=== PATIENT | female | born 1945 | race Caucasian/White ===

== ENCOUNTER → 2017-06-21 | Outpatient (CLI) | payer MEDICARE, MEDICAID ==
[~2017-06-21] MED LIST: ALEN70TA2 PO; AMOX-559 PO; ASCO-183 PO; ASCO-599 PO; ASCO60LO11 PO; ASP81 PO; ASPI-757 PO; ASPI-879 PO; ASPI81TA94 PO; B CM1TAB2 PO; BLOO-884 MC; CALC-649 PO; CALC-682 PO; CHOL200022 PO; CHOL400C10 PO; CYAN50TA3 PO; CYC10 PO; DAR100 PO; DESL5TAB PO; DICL-195 PO; DICL1TAB52 PO; DIPH-1 PO; FISH OIL1 CAP PO; FISH1CAP15 PO; FLU150 PO; FLU45SYR17 IM; HCTZ25 PO; HYDR-2966 PO; HYDR-3072 PO; IBU600 PO; LECI400C PO; LEVO75TA73 PO; LIS10 PO; LISI-362 PO; LOR5/325 PO; LORA-629 PO; MISO200T62 PO; MON10 PO; MONT10TA PO; PAN40 PO; PANT40TA65 PO; PNEU0.5D3 IM; POLY10DR20 OP; POT20; POTA20TA85 PO; POTA20TA94 PO; PREDNISONE PO; VITA-175 PO; VITA-197 PO; VITA15CR2 TP; [UNRECOGNIZED DRUG - CODE] DT; [UNRECOGNIZED DRUG - CODE] MC; [UNRECOGNIZED DRUG - CODE] PO; [UNRECOGNIZED DRUG - CODE] PO; [UNRECOGNIZED DRUG - CODE] PO; [UNRECOGNIZED DRUG - CODE] PO
== END ==
LOC: LAB 14:27
PROVIDERS: ATTEND Family Medicine
DX: R30.0 Dysuria (principal)
CPT/HCPCS: 81001

== ENCOUNTER → 2017-11-14 | Outpatient (CLI) | payer MEDICARE, MEDICAID ==
[2017-11-14 11:44] LABS: LDL CHOLESTEROL 108 mg/dl
== END ==
LOC: LAB 10:44
PROVIDERS: ATTEND Internal Medicine
DX: E55.9 Vitamin D deficiency, unspecified (principal); E05.20 Thyrotoxicosis with toxic multinodular goiter without thyrotoxic crisis or storm; I10 Essential (primary) hypertension; E11.9 Type 2 diabetes mellitus without complications
CPT/HCPCS: 36415; 82040; 82247; 82306; 82310; 82374; 82435; 82465; 82565; 82947; 83036; 83718; 84075; 84132; 84155; 84295; 84443; 84450; 84460; 84478; 84520

== ENCOUNTER → 2017-11-15 | Outpatient (CLI) | payer MEDICARE, MEDICAID | LOC: LAB 11:48 | PROVIDERS: ATTEND Internal Medicine | DX: R30.0 Dysuria (principal) | CPT/HCPCS: 81001; 87077; 87088; 87186 ==

== ENCOUNTER → 2017-12-05 | Outpatient (CLI) | payer MEDICARE, MEDICAID ==
[~2017-12-05] MED LIST changes: +AMOX500T10 PO; +BLOO1STR16 MC; +ESTR42.5 PV; +LANC-1295 MC
== END ==
LOC: LAB 10:57
PROVIDERS: ATTEND Internal Medicine
DX: R30.0 Dysuria (principal)
CPT/HCPCS: 81001

== ENCOUNTER → 2018-02-21 | Outpatient (CLI) | payer MEDICARE, MEDICAID ==
[~2018-02-21] MED LIST changes: +CHOL200018 PO; -CHOL200022 PO
[2018-02-21 08:35] LABS: LDL CHOLESTEROL 137 mg/dl
== END ==
LOC: LAB 07:58
PROVIDERS: ATTEND Internal Medicine
DX: E11.40 Type 2 diabetes mellitus with diabetic neuropathy, unspecified (principal); R51 Headache; E03.9 Hypothyroidism, unspecified; E78.5 Hyperlipidemia, unspecified
CPT/HCPCS: 36415; 82040; 82247; 82310; 82374; 82435; 82465; 82565; 82947; 83036; 83718; 84075; 84132; 84155; 84295; 84443; 84450; 84460; 84478; 84520

== ENCOUNTER → 2018-02-27 | Outpatient (CLI) | payer MEDICARE, MEDICAID ==
--- NOTE | 2018-02-27 16:34 | RADIOLOGY IMAGING REPORT ---
FACILITY: [facility] PATIENT NAME: Rosemarie Collins : 1945 MR: [id number] V: [id number] EXAM DATE: ORDERING PHYSICIAN: MARLIN RAMAN TECHNOLOGIST: Location: [facility] [place] Patient: Rosemarie Collins : 1945 Visit/Account:[id number] Date of Sevice: 02/27/2018 Clinical history: Postmenopausal, osteoporosis screening. Comparison: 08/10/2014. LUMBAR SPINE: The bone mineral density (BMD) measured from L1-L3 correlates with a Z-score of 2.2 and a T-score of 0.7 which is normal as defined by the World Health Organization. The corresponding risk of fracture in the lumbar spine is not increased compared with a young adult reference population. This value conde s increase by 3.4 % since the prior study. More than 5% change is considered significant. HIP: Bone mineral density (BMD) measured in the left Total Hip region correlates with a Z-score of -0.6 an d a T-score of -2.0 which is osteopenia as defined by the World Health Organization. The correspondi ng risk of fracture in the hip is increased 4 times compared with a young adult reference population. This value has increased by 6.7 % since the prior study. More than 5% change is considered signifi cant. Bone mineral density (BMD) measured in the left femoral neck correlates with a Z-score of 0.2 and a T -score of -1.4 which is osteopenia as defined by the World Health Organization. The corresponding ri sk of fracture in the hip is increased 2-3 times compared with a young adult reference population. T his value has increased by 9.8 % since the prior study. More than 5% change is considered significan t. Bone mineral density (BMD) measured in the left Femoral Neck region measures 0.849 g/cm2. IMPRESSION: 1. Lumbar spine: Osteopenia. There has been no significant change in the bone mineral density sinc e the previous exam. 2. Left total hip: Osteopenia. There has been significant increase in the bone mineral density since the previous exam. 3. Left Femoral Neck: Osteopenia. There has been significant increase in the bone mineral density si nce the previous exam 4. Left femoral neck bone mineral density: 0.849 g/cm2. The next DEXA scan of this patient should include the following sites: Lumbar spine and left hip. FRAX(R) WHO Fracture Risk Assessment Tool link: http://www.shef.ac.uk/FRAX/tool.jsp?locationValue=9 PLEASE NOTE: 1) The World Health Organization defines low BMD as follows: T-score Normal > -1 Osteopenia < -1 and > -2.5 Osteoporosis < -2.5 without fractures Established osteoporosis < -2.5 with fractures 2) In general, you may wish to consider: Diagnosis Treatment Follow-up DEXA Normal BMD Prevention 2-3 years Osteopenia Prevention/therapy 1-2 years Osteoporosis Therapy Yearly 3) Fracture risk estimated from the T-score is more accurate for vertebral fractures (often spontane ous) than for hip fractures Report Dictated By: Lorie Vidales MD at 02/27/2018 4:26 PM Report E-Signed By: Lorie Vidales MD at 02/27/2018 4:30 PM WSN:[id number]
--- NOTE | 2018-03-01 08:24 | RADIOLOGY IMAGING REPORT ---
[place] [facility] [place]: TARIK SHABAZZ : [id number] MR: [id number] V: [id number] EXAM DATE: ORDERING PHYSICIAN: MARLIN RAMAN TECHNOLOGIST: Beverly Rivera PROCEDURE:BILATERAL DIGITAL SCREENING MAMMOGRAM WITH CAD ASSISTED INTERPRETATION & 3D TOMOSYNTHESIS COMPARISON:Prior mammograms dated 05/06/14, 06/28/12, 06/26/11 INDICATIONS:SCREENING FINDINGS: A small amount of fibroglandular tissue is seen throughout the breasts. The parenchymal pattern has remained stable allowing for difference in mammographic technique & patient positioning. There is no evidence of malignant appearing mass, malignant appearing calcification or other secondary sign of malignancy in either breast. DIAGNOSTIC CATEGORY 1--NEGATIVE. RECOMMENDATIONS: ROUTINE MAMMOGRAM AND CLINICAL EVALUATION. IMPRESSION: BIRADS 1: Negative. No significant abnormality is seen. Dictated by: Tresa Butt M.D. on 02/27/2018 at 16:36 Transcribed by: JASMINE on 03/01/2018 at 8:10 Approved by: Tresa Butt M.D. on 03/01/2018 at 8:22 [facility]
== END ==
LOC: MAMO 00:38
PROVIDERS: ATTEND Internal Medicine
DX: Z13.820 Encounter for screening for osteoporosis (principal); Z12.31 Encounter for screening mammogram for malignant neoplasm of breast; M85.88 Other specified disorders of bone density and structure, other site
CPT/HCPCS: 77063; 77067; 77080

== ENCOUNTER → 2018-05-22 | Outpatient (CLI) | payer MEDICARE, MEDICAID ==
[~2018-05-22] MED LIST changes: -ALEN70TA2 PO; +ALEN70TA46 PO
[2018-05-22 11:22] LABS: LDL CHOLESTEROL 142 mg/dl
== END ==
LOC: LAB 09:53
PROVIDERS: ATTEND Internal Medicine
DX: E11.40 Type 2 diabetes mellitus with diabetic neuropathy, unspecified (principal); E78.00 Pure hypercholesterolemia, unspecified; E05.90 Thyrotoxicosis, unspecified without thyrotoxic crisis or storm
CPT/HCPCS: 36415; 82040; 82247; 82310; 82374; 82435; 82465; 82565; 82947; 83036; 83718; 84075; 84132; 84155; 84295; 84443; 84450; 84460; 84478; 84520

== ENCOUNTER 2018-06-15 13:46 | Emergency (ER) | payer MEDICARE, MEDICAID ==
[~2018-06-15 13:46] MED LIST changes: +[UNRECOGNIZED DRUG - CODE] DT
--- NOTE | 2018-06-15 13:53 | ER Report ---
History and Physical Time Seen By : 13:53 HPI/ROS 72 y/o female with history of HTN and DM presents to the ED b/c her home BP/HR cuff read "abnormal heart beat." She did not feel palpitations, but grew concerned when she developed a pain in her left elbow and forearm. No n/v, sob, or diaphoresis. Takes an 81mg ASA each day, but took additional when she developed arm pain. No pain in shoulder/back/chest during the episode. No pain in the ED. [place] well this morning before the episode. Remainder of the 14 system rev: Yes Allergies: Coded Allergies: ciprofloxacin (Verified Allergy, Intermediate, rash, 01/06/15) pioglitazone (Verified Allergy, Intermediate, rash, 01/06/15) Iodinated Contrast Media - IV Dye (Verified Allergy, Mild, rash, 01/06/15) adhesive (Verified Allergy, Mild, rash, 01/06/15) tramadol (Verified Allergy, Mild, hives, 01/06/15) dexamethasone (Verified Allergy, Unknown, itchy throat, 01/06/15) fluorescein (Verified Allergy, Unknown, itchy throat, 01/06/15) levofloxacin (Verified Allergy, Unknown, FLUSHING, 01/06/15) tobramycin (Verified Allergy, Unknown, itchy throat, 01/06/15) codeine (Verified Adverse Reaction, Intermediate, abdominal pain and vomiting, 01/06/15) Home Meds Active Scripts Sodium Fluoride (Fluoridex) 1.1 % Paste..g., 1 DIMITRY DT BID, #112 G 5 Refills Prov:MARLIN RAMAN MD 06/13/18 Alendronate Sodium (ALENDRONATE SODIUM) 70 Mg Tablet, 1 TAB PO weekly, #12 TAB 0 Refills Prov:MARLIN RAMAN MD 06/10/18 Levothyroxine Sodium (LEVOTHYROXINE SODIUM) 75 Mcg Tablet, 1 TAB PO QDAY, #90 TAB 0 Refills 1 tab by mouth Daily for 6 days of the week, then none on the 7th day Prov:MARLIN RAMAN MD 05/14/18 Diclofenac Sodium (DICLOFENAC SODIUM) 75 Mg Tablet.dr, 1 TAB PO BID, #180 TAB 3 Refills Prov:MARLIN RAMAN MD 04/10/18 Potassium Chloride (POTASSIUM CHLORIDE) 20 Meq Tab.er.prt, 1 TAB PO BID, #180 TAB 1 Refill Prov:MARLIN RAMAN MD 03/29/18 Montelukast Sodium (SINGULAIR) 10 Mg Tablet, 1 TAB PO QDAY, #90 TAB 3 Refills Prov:MARLIN RAMAN MD 01/29/18 Lisinopril (LISINOPRIL) 10 Mg Tablet, 1 TAB PO BID, #180 TAB 3 Refills Prov:MARLIN RAMAN MD 12/11/17 Estrogens, Conjugated (Premarin) 0.625 Mg/Gram Cream.appl, 0.5 GM PV 2XW for 30 Days, #1 TUBE 3 Refills Prov:YAKOV ABREU MD 12/06/17 Lancets (FREESTYLE LANCETS) 1 Each Each, EACH MC, #100 12 Refills Use to test Blood sugar twice daily Prov:MARLIN RAMAN MD 11/21/17 Blood Sugar Diagnostic (FREESTYLE LITE TEST STRIPS) 1 Each Strip, 100 EACH MC Q30D, #100 STRIP 3 Refills Prov:MARLIN RAMAN MD 11/21/17 Hydrochlorothiazide (HYDROCHLOROTHIAZIDE) 25 Mg Tablet, 1 TAB PO QDAY, #90 TAB 3 Refills Prov:MARLIN RAMAN MD 08/14/17 Misoprostol (MISOPROSTOL) 200 Mcg Tablet, 1 TAB PO BID, #180 TAB 3 Refills Prov:MARLIN RAMAN MD 07/17/17 Pantoprazole Sodium (PANTOPRAZOLE SODIUM) 40 Mg Tablet.dr, 1 TAB PO QDAY, #90 TAB.SR 2 Refills Prov:MARLIN RAMAN MD 12/15/15 Reported Medications Cholecalciferol (Vitamin D3) (VITAMIN D) 2,000 Unit Tablet, 1 TAB PO QDAY, CAPSULE 09/03/14 Aspirin (ASPIRIN) 81 Mg Tab.chew, 1 TAB PO QDAY, TAB.CHEW 09/03/14 Loratadine (LORATADINE) 10 Mg Tablet, 1 TAB PO QDAY 04/30/14 Lecithin (LECITHIN) 1,200 Mg Capsule, 1 CAP PO QDAY, CAPSULE 04/30/14 Vitamin B Complex (B COMPLEX) 1 Each Tablet, 1 TAB PO QDAY 04/30/14 Ascorbic Acid (ASCORBIC ACID) 500 Mg Tablet, 1 TAB PO QDAY 04/30/14 Calcium Carbonate/Vitamin D3 (CALCIUM 600 + VIT D 200 TABLET) 1 Each Tablet, 1 TAB PO QDAY 04/30/14 Fish Oil/Dha/Epa (FISH OIL 1,200 MG FISH OIL) 1 Each Capsule, 1 CAP PO QDAY, CAPSULE 04/30/14 Discontinued Scripts Sodium Fluoride (FLUORIDEX DAILY DEFENSE) 112 Gm Gel..gram., 1 DIMITRY DT BID, #112 G 5 Refills Prov:NIKKO CURIEL DNP, [employer] 10/25/15 Reviewed Nurses Notes: Yes Old Medical Records Reviewed: Yes Hx Smoking: No Smoking Status: Never Smoker Exposure to Second Hand Smoke?: Yes Hx Substance Use Disorder: No Hx Alcohol Use: No Constitutional Vital Sign - Last 24 Hours 06/15/18 13:51 O2 Delivery Room Air Physical Exam General Appearance: The patient is alert, has no immediate need for airway protection and no current signs of toxicity. Eyes: Pupils equal and round no injection. Respiratory: Chest is non tender, lungs are clear to auscultation. Cardiac: regular rate and rhythm Gastrointestinal: Abdomen is soft and non tender, no masses, bowel sounds normal. Extremities have full range of motion and are non tender. Skin: No rashes or lesions. DIFFERENTIAL DIAGNOSIS: After history and physical exam differential diagnosis was considered for chest pain including but not limited to myocardial ischemia, pericarditis pulmonary embolus, chest wall pain, pleural inflammation and pulmonary infectious causes. Medical Decision Making Data Points Result Diagram: 06/15/18 1403 06/15/18 1403 Laboratory Hematology Test 06/15/18 14:03 06/15/18 16:15 Red Blood Count 4.93 M/uL (4.17-5.56) Mean Corpuscular Volume 95.4 fL (80.0-96.0) Mean Corpuscular Hemoglobin 32.3 pg (26.0-33.0) Mean Corpuscular Hemoglobin Concent 33.9 g/dL (32.0-36.0) Red Cell Distribution Width 13.1 % (11.5-14.5) Mean Platelet Volume 6.6 fL (7.2-11.1) Neutrophils (%) (Auto) 60.0 % (39.4-72.5) Lymphocytes (%) (Auto) 31.8 % (17.6-49.6) Monocytes (%) (Auto) 5.8 % (4.1-12.4) Eosinophils (%) (Auto) 0.9 % (0.4-6.7) Basophils (%) (Auto) 1.5 % (0.3-1.4) Nucleated RBC Relative Count (auto) 0.1 /100WBC Neutrophils # (Auto) 4.4 K/uL (2.0-7.4) Lymphocytes # (Auto) 2.3 K/uL (1.3-3.6) Monocytes # (Auto) 0.4 K/uL (0.3-1.0) Eosinophils # (Auto) 0.1 K/uL (0.0-0.5) Basophils # (Auto) 0.1 K/uL (0.0-0.1) Nucleated RBC Absolute Count (auto) 0.01 K/uL Sodium Level 138 mmol/L (137-145) Potassium Level 3.7 mmol/L (3.5-5.0) Chloride Level 98 mmol/L (98-107) Carbon Dioxide Level 30 mmol/L (22-31) Blood Urea Nitrogen 21 mg/dl (7-18) Creatinine 0.70 mg/dl (0.52-1.04) Glomerular Filtration Rate Calc > 60.0 Random Glucose 104 mg/dl (75-110) Calcium Level 9.5 mg/dl (8.4-10.2) Total Bilirubin 0.3 mg/dl (0.2-1.3) Aspartate Amino Transf (AST/SGOT) 26 U/L (0-35) Alanine Aminotransferase (ALT/SGPT) 34 U/L (0-56) Alkaline Phosphatase 64 U/L (0-126) Total Protein 7.5 g/dl (6.3-8.2) Albumin 4.5 g/dl (3.5-5.0) Chemistry Test 06/15/18 14:03 06/15/18 16:15 White Blood Count 7.3 k/uL (4.5-11.0) Red Blood Count 4.93 M/uL (4.17-5.56) Hemoglobin 15.9 g/dL (12.0-16.0) Hematocrit 47.0 % (34.0-47.0) Mean Corpuscular Volume 95.4 fL (80.0-96.0) Mean Corpuscular Hemoglobin 32.3 pg (26.0-33.0) Mean Corpuscular Hemoglobin Concent 33.9 g/dL (32.0-36.0) Red Cell Distribution Width 13.1 % (11.5-14.5) Platelet Count 357 K/uL (150-450) Mean Platelet Volume 6.6 fL (7.2-11.1) Neutrophils (%) (Auto) 60.0 % (39.4-72.5) Lymphocytes (%) (Auto) 31.8 % (17.6-49.6) Monocytes (%) (Auto) 5.8 % (4.1-12.4) Eosinophils (%) (Auto) 0.9 % (0.4-6.7) Basophils (%) (Auto) 1.5 % (0.3-1.4) Nucleated RBC Relative Count (auto) 0.1 /100WBC Neutrophils # (Auto) 4.4 K/uL (2.0-7.4) Lymphocytes # (Auto) 2.3 K/uL (1.3-3.6) Monocytes # (Auto) 0.4 K/uL (0.3-1.0) Eosinophils # (Auto) 0.1 K/uL (0.0-0.5) Basophils # (Auto) 0.1 K/uL (0.0-0.1) Nucleated RBC Absolute Count (auto) 0.01 K/uL Glomerular Filtration Rate Calc > 60.0 Calcium Level 9.5 mg/dl (8.4-10.2) Total Bilirubin 0.3 mg/dl (0.2-1.3) Aspartate Amino Transf (AST/SGOT) 26 U/L (0-35) Alanine Aminotransferase (ALT/SGPT) 34 U/L (0-56) Alkaline Phosphatase 64 U/L (0-126) Total Protein 7.5 g/dl (6.3-8.2) Albumin 4.5 g/dl (3.5-5.0) EKG/Imaging Imaging 12 lead EKG: Rhythm: normal sinus rhythm [place]: normal QRS: normal ST segments: normal 1st degree AV block ED Course/Re-evaluation ED Course I do not think her arm pain is c/w ACS. She had pain at her elbow and forearm. No shoulder/chest /back pain. Pain free in the ED with 2 normal trops. EKG significant only for a 1st degree AV block. No evidence of arrhythmia. Could be motion artifact that the patient's monitor is picking up. I will have her follow up with her PCM this week, and I counseled her to discuss a possible stress test or holter monitor with her PCM. Decision to Disposition Date: Jun 15, 2018 Decision to Disposition Time: 17:00 Depart Departure Latest Vital Signs Vital Signs Date Time Temp Pulse Resp B/P (MAP) Pulse Ox O2 Delivery O2 Flow Rate FiO2 06/15/18 13:51 Room Air Impression: Primary Impression: Palpitations Condition: Improved Disposition: HOME OR SELF-CARE Referrals: MARLIN RAMAN MD (PCP) Patient Instructions: Palpitations (ED) TIP ALMONET MD Jun 15, 2018 13:53
[2018-06-15] MEDS ORDERED: NS(*) 0.9% 1000 ML BAG 1,000 ML IV ONE (14:00)
[2018-06-15 14:12] LABS: PLATELET COUNT, AUTOMATED 357 K/uL (150-450)
--- NOTE | 2018-06-15 14:34 | EKG ---
FACILITY: [facility] [place] PATIENT NAME: TARIK SHABAZZ : [id number] MR: [id number] V: [id number] EXAM DATE: ORDERING PHYSICIAN: TIP ALMONTE TECHNOLOGIST: NAVI Test Reason : IRREG HR Blood Pressure : / mmHG Vent. Rate : 055 BPM Atrial Rate : 055 BPM P-R Int : 210 ms QRS Dur : 098 ms QT Int : 434 ms P-R-T Axes : 095 -13 019 degrees QTc Int : 415 ms Sinus bradycardia with 1st degree AV block Left axis Nonspecific interventricular conduction delay No previous ECGs available Confirmed by LOUISE HERRMANN ([id number] on 06/15/2018 6:27:33 PM Referred By: SUZY Confirmed By:LOUISE HERRMANN
--- NOTE | 2018-06-15 15:02 | RADIOLOGY IMAGING REPORT ---
[place] [facility] [place] NAME: Rosemarie Collins : 1945 MR: [id number] V: [id number] EXAM DATE: ORDERING PHYSICIAN: TIP ALMONTE TECHNOLOGIST: [facility] Patient: Rosemarie Collins : 1945 Visit/Account:[id number] Date of Sevice: 06/15/2018 Technique: CHEST SINGLE AP HISTORY: chest pain Comparison studies: None FINDINGS: No acute airspace consolidation. No pleural effusion. Cardiac silhouette is unremarkable. IMPRESSION: 1. No acute cardiopulmonary process. Report Dictated By: Jeremiah Multani DO at 06/15/2018 2:52 PM Report E-Signed By: Jeremiah Multani DO at 06/15/2018 2:58 PM WSN:[id number]
[2018-06-15 17:00] VITALS: BP 136/85
== END 2018-06-15 17:10 | disposition home or self-care (01) ==
LOC: ER 13:57
DX: R00.2 Palpitations (principal)
CPT/HCPCS: 36415; 71045; 84439; 84443; 84481; 84484; 85025; 93005; 96360; 99284; J7030; 82040; 82247; 82310; 82374; 82435; 82565; 82947; 84075; 84132; 84155; 84295; 84450; 84460; 84520

== ENCOUNTER 2018-06-21 20:11 | Emergency (ER) | payer MEDICARE, MEDICAID ==
--- NOTE | 2018-06-21 20:14 | ER Report ---
History and Physical Time Seen By MD: 20:14 HPI/ROS CHIEF COMPLAINT: Left arm ache, diaphoresis, blurry vision HISTORY OF PRESENT ILLNESS: 72-year-old female who was recently in the ER and 06/15/18 with irregular heartbeat noted by her blood pressure cuff. He had an extensive evaluation which was unremarkable including 2 troponins. She subseq uent follow-up with her primary care provider Katelynn Rand and has been scheduled for a stress echo. Patient denies history of coronary artery disease. Patient was at rest tonight when the symptoms started. She notes no chest pain, no palpitations, no chest tightness, but she was advised by her primary care to come in should she have any sweatiness, dizziness, weakness. Patient reports that she took a full strength 325 mg aspirin at home prior to coming in. REVIEW OF SYSTEMS: Respiratory: No cough, no dyspnea. Cardiovascular: No chest pain, no palpitations. Gastrointestinal: No vomiting, no abdominal pain. Musculoskeletal: No back pain. Allergies: Coded Allergies: ciprofloxacin (Verified Allergy, Intermediate, rash, 06/21/18) pioglitazone (Verified Allergy, Intermediate, rash, 06/21/18) Iodinated Contrast- Oral and IV Dye (Verified Allergy, Mild, rash, 06/21/18) adhesive (Verified Allergy, Mild, rash, 06/21/18) tramadol (Verified Allergy, Mild, hives, 06/21/18) dexamethasone (Verified Allergy, Unknown, itchy throat, 06/21/18) fluorescein (Verified Allergy, Unknown, itchy throat, 06/21/18) levofloxacin (Verified Allergy, Unknown, FLUSHING, 06/21/18) tobramycin (Verified Allergy, Unknown, itchy throat, 06/21/18) codeine (Verified Adverse Reaction, Intermediate, abdominal pain and vomiting, 06/21/18) Home Meds Active Scripts Sodium Fluoride (Fluoridex) 1.1 % Paste..g., 1 DIMITRY DT BID, #112 G 5 Refills Prov:MARLIN RAMAN MD 06/13/18 Alendronate Sodium (ALENDRONATE SODIUM) 70 Mg Tablet, 1 TAB PO weekly, #12 TAB 0 Refills Prov:MARLIN RAMAN MD 06/10/18 Levothyroxine Sodium (LEVOTHYROXINE SODIUM) 75 Mcg Tablet, 1 TAB PO QDAY, #90 TAB 0 Refills 1 tab by mouth Daily for 6 days of the week, then none on the 7th day Prov:MARLIN RAMAN MD 05/14/18 Diclofenac Sodium (DICLOFENAC SODIUM) 75 Mg Tablet.dr, 1 TAB PO BID, #180 TAB 3 Refills Prov:MARLIN RAMAN MD 04/10/18 Potassium Chloride (POTASSIUM CHLORIDE) 20 Meq Tab.er.prt, 1 TAB PO BID, #180 TAB 1 Refill Prov:MARLIN RAMAN MD 03/29/18 Montelukast Sodium (SINGULAIR) 10 Mg Tablet, 1 TAB PO QDAY, #90 TAB 3 Refills Prov:MARLIN RAMAN MD 01/29/18 Lisinopril (LISINOPRIL) 10 Mg Tablet, 1 TAB PO BID, #180 TAB 3 Refills Prov:MARLIN RAMAN MD 12/11/17 Estrogens, Conjugated (Premarin) 0.625 Mg/Gram Cream.appl, 0.5 GM PV 2XW for 30 Days, #1 TUBE 3 Refills Prov:YAKOV ABREU MD 12/06/17 Lancets (FREESTYLE LANCETS) 1 Each Each, EACH MC, #100 12 Refills Use to test Blood sugar twice daily Prov:MARLIN RAMAN MD 11/21/17 Blood Sugar Diagnostic (FREESTYLE LITE TEST STRIPS) 1 Each Strip, 100 EACH MC Q30D, #100 STRIP 3 Refills Prov:MARLIN RAMAN MD 11/21/17 Hydrochlorothiazide (HYDROCHLOROTHIAZIDE) 25 Mg Tablet, 1 TAB PO QDAY, #90 TAB 3 Refills Prov:MARLIN RAMAN MD 08/14/17 Misoprostol (MISOPROSTOL) 200 Mcg Tablet, 1 TAB PO BID, #180 TAB 3 Refills Prov:MARLIN RAMAN MD 07/17/17 Pantoprazole Sodium (PANTOPRAZOLE SODIUM) 40 Mg Tablet.dr, 1 TAB PO QDAY, #90 TAB.SR 2 Refills Prov:MARLIN RAMAN MD 12/15/15 Reported Medications Cholecalciferol (Vitamin D3) (VITAMIN D) 2,000 Unit Tablet, 1 TAB PO QDAY, CAPSULE 09/03/14 Aspirin (ASPIRIN) 81 Mg Tab.chew, 1 TAB PO QDAY, TAB.CHEW 09/03/14 Loratadine (LORATADINE) 10 Mg Tablet, 1 TAB PO QDAY 04/30/14 Lecithin (LECITHIN) 1,200 Mg Capsule, 1 CAP PO QDAY, CAPSULE 04/30/14 Vitamin B Complex (B COMPLEX) 1 Each Tablet, 1 TAB PO QDAY 04/30/14 Ascorbic Acid (ASCORBIC ACID) 500 Mg Tablet, 1 TAB PO QDAY 04/30/14 Calcium Carbonate/Vitamin D3 (CALCIUM 600 + VIT D 200 TABLET) 1 Each Tablet, 1 TAB PO QDAY 04/30/14 Fish Oil/Dha/Epa (FISH OIL 1,200 MG FISH OIL) 1 Each Capsule, 1 CAP PO QDAY, CAPSULE 04/30/14 Past Medical/Surgical History Past Medical History Neurologic: Reports hx of: neuropathy (Diabetic) HEENT: Reports hx of: other ENT disorders (pharyngitis, tongue condition, ) Cardiovascular: Reports hx of: hyperlipidemia hypertension Musculoskeletal: Reports hx of: back pain osteopenia Endocrine: Reports hx of: diabetes type 2 hypothyroidism (post treatment toxic multinodular goiter) other endocrine history (toxic multinodular goiter) Past Surgical History Gastrointestinal: Reports hx of: cholecystectomy (age 22) Gynecologic: Reports hx of: tubal ligation Reviewed Nurses Notes: Yes Old Medical Records Reviewed: Yes Hx Smoking: No Smoking Status: Never Smoker Exposure to Second Hand Smoke?: Yes Hx Substance Use Disorder: No Hx Alcohol Use: No Constitutional Vital Sign - Last 24 Hours 06/21/18 06/21/18 06/21/18 06/21/18 20:17 20:25 20:26 20:30 Temp 97.5 Pulse 63 55 Resp 12 20 B/P (MAP) 150/95 (113) 150/93 130/77 (94) Pulse Ox 93 95 O2 Delivery Room Air 06/21/18 06/21/18 06/21/18 06/21/18 20:41 20:56 21:00 21:11 Pulse 56 54 54 Resp 10 12 13 B/P (MAP) 129/72 (91) Pulse Ox 93 95 91 Physical Exam General Appearance: The patient is alert, has no immediate need for airway protection and no current signs of toxicity. Vital signs stable, afebrile, pulse ox normal HEENT: Pupils equal and round no injection. Oropharynx without redness or exudate, mucous. Membranes are moist Respiratory: Chest is non tender, lungs are clear to auscultation. No chest wall tenderness Cardiac: regular rate and rhythm, no murmur Gastrointestinal: Abdomen is soft and non tender, no masses, bowel sounds normal. Musculoskeletal: Neck: Neck is supple and non tender. Extremities have full range of motion and are non tender. No edema, no calf tenderness Skin: No rashes or lesions. DIFFERENTIAL DIAGNOSIS: After history and physical exam differential diagnosis was considered for chest pain including but not limited to myocardial ischemia, upper dictations, anxiety, pericarditis pulmonary embolus, chest wall pain, pleural inflammation and pulmonary infectious causes. Medical Decision Making Data Points Result Diagram: 06/21/18202006/21/182020 Laboratory Hematology Test 06/21/18 20:21 Red Blood Count 4.98 M/uL (4.17-5.56) Mean Corpuscular Volume 94.8 fL (80.0-96.0) Mean Corpuscular Hemoglobin 32.7 pg (26.0-33.0) Mean Corpuscular Hemoglobin Concent 34.5 g/dL (32.0-36.0) Red Cell Distribution Width 13.0 % (11.5-14.5) Mean Platelet Volume 6.7 fL (7.2-11.1) Neutrophils (%) (Auto) 44.5 % (39.4-72.5) Lymphocytes (%) (Auto) 45.4 % (17.6-49.6) Monocytes (%) (Auto) 6.9 % (4.1-12.4) Eosinophils (%) (Auto) 1.8 % (0.4-6.7) Basophils (%) (Auto) 1.4 % (0.3-1.4) Nucleated RBC Relative Count (auto) 0.1 /100WBC Neutrophils # (Auto) 3.5 K/uL (2.0-7.4) Lymphocytes # (Auto) 3.5 K/uL (1.3-3.6) Monocytes # (Auto) 0.5 K/uL (0.3-1.0) Eosinophils # (Auto) 0.1 K/uL (0.0-0.5) Basophils # (Auto) 0.1 K/uL (0.0-0.1) Nucleated RBC Absolute Count (auto) 0.01 K/uL D-Dimer Quantitative (PE/DVT) 0.56 ug/ml (0-0.50) Sodium Level 137 mmol/L (137-145) Potassium Level 3.7 mmol/L (3.5-5.0) Chloride Level 101 mmol/L (98-107) Carbon Dioxide Level 29 mmol/L (22-31) Blood Urea Nitrogen 19 mg/dl (7-18) Creatinine 0.80 mg/dl (0.52-1.04) Glomerular Filtration Rate Calc > 60.0 Random Glucose 88 mg/dl (75-110) Calcium Level 9.3 mg/dl (8.4-10.2) Total Bilirubin 0.2 mg/dl (0.2-1.3) Aspartate Amino Transf (AST/SGOT) 25 U/L (0-35) Alanine Aminotransferase (ALT/SGPT) 30 U/L (0-56) Alkaline Phosphatase 76 U/L (0-126) Troponin I < 0.012 ng/ml B-Type Natriuretic Peptide 54 pg/ml (0-100) Total Protein 7.5 g/dl (6.3-8.2) Albumin 4.4 g/dl (3.5-5.0) Chemistry Test 06/21/18 20:21 White Blood Count 7.8 k/uL (4.5-11.0) Red Blood Count 4.98 M/uL (4.17-5.56) Hemoglobin 16.3 g/dL (12.0-16.0) Hematocrit 47.3 % (34.0-47.0) Mean Corpuscular Volume 94.8 fL (80.0-96.0) Mean Corpuscular Hemoglobin 32.7 pg (26.0-33.0) Mean Corpuscular Hemoglobin Concent 34.5 g/dL (32.0-36.0) Red Cell Distribution Width 13.0 % (11.5-14.5) Platelet Count 388 K/uL (150-450) Mean Platelet Volume 6.7 fL (7.2-11.1) Neutrophils (%) (Auto) 44.5 % (39.4-72.5) Lymphocytes (%) (Auto) 45.4 % (17.6-49.6) Monocytes (%) (Auto) 6.9 % (4.1-12.4) Eosinophils (%) (Auto) 1.8 % (0.4-6.7) Basophils (%) (Auto) 1.4 % (0.3-1.4) Nucleated RBC Relative Count (auto) 0.1 /100WBC Neutrophils # (Auto) 3.5 K/uL (2.0-7.4) Lymphocytes # (Auto) 3.5 K/uL (1.3-3.6) Monocytes # (Auto) 0.5 K/uL (0.3-1.0) Eosinophils # (Auto) 0.1 K/uL (0.0-0.5) Basophils # (Auto) 0.1 K/uL (0.0-0.1) Nucleated RBC Absolute Count (auto) 0.01 K/uL D-Dimer Quantitative (PE/DVT) 0.56 ug/ml (0-0.50) Glomerular Filtration Rate Calc > 60.0 Calcium Level 9.3 mg/dl (8.4-10.2) Total Bilirubin 0.2 mg/dl (0.2-1.3) Aspartate Amino Transf (AST/SGOT) 25 U/L (0-35) Alanine Aminotransferase (ALT/SGPT) 30 U/L (0-56) Alkaline Phosphatase 76 U/L (0-126) Troponin I < 0.012 ng/ml B-Type Natriuretic Peptide 54 pg/ml (0-100) Total Protein 7.5 g/dl (6.3-8.2) Albumin 4.4 g/dl (3.5-5.0) Coagulation Test 06/21/18 20:21 D-Dimer Quantitative (PE/DVT) 0.56 ug/ml EKG/Imaging EKG Interpretation 12 lead EKG: Rhythm: normal sinus rhythm, first-degree AV block with single PVC [place]: normal QRS: normal ST segments: normal, comparison to previous EKG dated 06/15/18, no significant change ED Course/Re-evaluation Clinical Indication for ER IV: IV Access ED Course Patient was admitted to an examination room. An H&P was done. The differential diagnoses was considered. Patient with diaphoresis. She was advised by primary care to come to the ER for any associated symptoms. Patient's initial EKG was unremarkable. Diagnostic laboratory studies were unremarkable. Patient's reassured that this is not likely cardiac symptoms. But she is scheduled for follow-up for a stress echo. Decision to Disposition Date: Jun 21, 2018 Decision to Disposition Time: 20:53 Depart Departure Latest Vital Signs Vital Signs Date Time Temp Pulse Resp B/P (MAP) Pulse Ox O2 Delivery O2 Flow Rate FiO2 06/21/18 21:11 54 13 91 06/21/18 21:00 129/72 (91) 06/21/18 20:25 97.5 Room Air Impression: Primary Impression: Left arm pain Additional Impressions: Sweaty skin Hypertension Condition: Improved Disposition: HOME OR SELF-CARE Referrals: MARLIN RAMAN MD (PCP) Patient Instructions: Palpitations (ED) Additional Instructions: Follow-up with your primary care as planned. Proceed with the stress echo as planned Problem Qualifiers Additional Impressions: Hypertension Hypertension type: essential hypertension Qualified Codes: I10 - Essential (primary) hypertension VANNA MELENDEZ DO Jun 21, 2018 20:14
[2018-06-21 20:40] LABS: PLATELET COUNT, AUTOMATED 388 K/uL (150-450)
[2018-06-21 21:00] VITALS: BP 129/72
--- NOTE | 2018-06-21 21:09 | EKG ---
FACILITY: [facility] - [place] PATIENT NAME: TARIK SHABAZZ : [id number] MR: [id number] V: [id number] EXAM DATE: ORDERING PHYSICIAN: VANNA MELENDEZ TECHNOLOGIST: DIANNE Test Reason : CP Blood Pressure : / mmHG Vent. Rate : 057 BPM Atrial Rate : 057 BPM P-R Int : 210 ms QRS Dur : 100 ms QT Int : 410 ms P-R-T Axes : 057 -05 -22 degrees QTc Int : 399 ms Sinus bradycardia with 1st degree AV block with occasional premature ventricular complexes Otherwise normal ECG When compared with ECG of 15-JUN-2018 14:05, premature ventricular complexes are now present T wave inversion more evident in Inferior leads Confirmed by Petar Astorga ([id number]) on 06/22/2018 6:58:08 AM Referred By: NORA Confirmed By:Petar Bean
== END 2018-06-21 21:19 | disposition home or self-care (01) ==
LOC: ER 20:16
DX: M79.602 Pain in left arm (principal); R61 Generalized hyperhidrosis; I10 Essential (primary) hypertension
CPT/HCPCS: 82040; 82247; 82310; 82374; 82435; 82565; 82947; 83880; 84075; 84132; 84155; 84295; 84450; 84460; 84484; 84520; 85025; 85379; 93005; 99283

== ENCOUNTER → 2018-07-11 | Outpatient (CLI) | payer MEDICARE, MEDICAID ==
[~2018-07-11] MED LIST changes: +REGADENOSON 0.4 MG/5 ML SYR ONE
--- NOTE | 2018-07-11 17:05 | RADIOLOGY IMAGING REPORT ---
FACILITY: [facility] - [place] PATIENT NAME: Rosemarie Collins : 1945 MR: [id number] V: [id number] EXAM DATE: ORDERING PHYSICIAN: NIKKO CURIEL TECHNOLOGIST: Location: [facility] [place] Patient: Rosemarie Collins : 1945 Visit/Account:[id number] Date of Sevice: 07/11/2018 EXAMINATION: Single isotope SPECT imaging with regadenoson infusion and gated SPECT imaging. DATE OF EXAMINATION: July 11, 2018. DATE OF INTERPRETATION: July 11, 2018. REQUESTING PHYSICIAN: NIKKO CURIEL. INDICATION: The patient is a 72-year-old female evaluated for CAD. PROCEDURE: After informed consent the patient received an intravenous injection of 12.1 mCi of Tc-99 m sestamibi followed at an appropriate time interval by rest imaging. The patient then subsequently received an intravenous infusion of 0.4 mg of regadenoson per protocol without complication. Resting heart rate was 58 bpm with a peak heart rate of 90 bpm. Blood pressure at rest was 114 / 73 and fol lowing infusion was 129 / 74. Baseline EKG demonstrates sinus rhythm. There were 0.[address] depre ssion and T wave inversion in the anterolateral leads EKG changes of ischemia following infusion. Sy mptoms were nonspecific. The patient then received an intravenous injection of 28.4 mCi of Tc-99m se stamibi followed by stress imaging. RAW DATA: Examination of the summed raw data revealed a fair quality study. MYOCARDIAL PERFUSION: The tomographic images demonstrate normal perfusion both at rest and at stress .. GATED IMAGES: The gated images demonstrate a normal ejection fraction at 71% without segmental wall motion abnormalities. IMPRESSION: 1. Baseline EKG shows normal sinus rhythm. During the Lexiscan infusion the patient does have about 0.[address] depression with T wave inversions in the anterolateral leads. This is somewhat suspiciou s but not diagnostic. The perfusion study is normal with normal ejection fraction. Clinical correlati on is recommended. 2. Normal myocardial perfusion scan. 3. Normal LV systolic function; LVEF 71%. 4. Based on the results of this exam, the patient appears to be at low risk for future cardiovascular events. Report Dictated By: Lux Ortega MD at 07/11/2018 4:56 PM Report E-Signed By: Lux Ortega MD at 07/11/2018 5:00 PM WSN:[id number]
--- NOTE | 2018-07-11 21:08 | RT STRESS TEST REPORT ---
FACILITY: [facility] - [place] PATIENT NAME: TARIK SHABAZZ : [id number] MR: [id number] V: [id number] EXAM DATE: ORDERING PHYSICIAN: NIKKO CURIEL TECHNOLOGIST: Alberto Acquisition Time: 2018-07-11 14:45:38 Total Exercise Time: 00:01:00 Test Indications: Arrhythmia Medications: see nuclear med sheet Protocol: LEXISCAN Max HR: 093 BPM 62% of Pred: 150 BPM Max BP: 129/074 mmHG Max Work Load: 1.0 METS The patient didn't have chest pain or ST depression after the Lexiscan infusion. She did have some d iffuse T inversion that persisted. See the nuclear images for details. Confirmed by DEEPALI DANIELLE ([id number]) on 07/11/2018 9:08:16 PM Referred By: Overread By: DEEPALI DANIELLE
== END ==
LOC: NUC 01:05
PROVIDERS: ATTEND Nurse Practitioner Primary Care
DX: I49.9 Cardiac arrhythmia, unspecified (principal); R94.31 Abnormal electrocardiogram [ECG] [EKG]
CPT/HCPCS: 78452; 93017; A9500; J2785

== ENCOUNTER → 2018-09-10 | Outpatient (CLI) | payer MEDICARE, MEDICAID ==
[~2018-09-10] MED LIST changes: -REGADENOSON 0.4 MG/5 ML SYR ONE
== END ==
LOC: LAB 13:06
PROVIDERS: ATTEND Emergency Medicine
DX: E11.40 Type 2 diabetes mellitus with diabetic neuropathy, unspecified (principal)
CPT/HCPCS: 36415; 82465; 83036; 83718; 84478